=== PATIENT | female | born 1950 | race Two or more races ===

== ENCOUNTER 2020-09-08 11:21 | Inpatient (IN) | payer MEDICARE, OTHER ==
[2020-09-08 12:11] VITALS: BMI 28.1
[2020-09-08 13:26] LABS: BASO % 0.6 % (0-2.0); EOS % 5.2 % (0-4.5); HEMATOCRIT 36.1 % (32.4-45.2); HEMOGLOBIN 11.6 GM/dL (10.7-15.3); LYMPH % 36.5 % (8-40); MCH 25.5 pg (25.7-33.7); MCHC 32.3 g/dl (32.0-36.0); MEAN PLT VOLUME 8.3 fl (7.5-11.1); MONO % 8.7 % (3.8-10.2); PLATELET COUNT 383 K/MM3 (134-434); RBC 4.57 M/mm3 (3.60-5.2); RDW 16.3 % (11.6-15.6); WHITE BLOOD COUNT 5.7 K/mm3 (4.0-10.0)
[2020-09-08 13:51] LABS: CHLORIDE 105 mmol/L (98-107); SODIUM 137 mmol/L (136-145)
[2020-09-08 13:53] LABS: CALCIUM 8.8 mg/dL (8.5-10.1)
[2020-09-08 13:54] LABS: ALBUMIN 3.2 g/dl (3.4-5.0); ANION GAP 3 MMOL/L (8-16); BLOOD UREA NITROGEN 20.4 mg/dL (7-18); CO2 28 mmol/L (21-32); GLUCOSE,RANDOM 88 mg/dL (74-106)
[2020-09-08 13:57] LABS: CREATININE 0.7 mg/dL (0.55-1.3); SGOT/AST 15 U/L (15-37); SGPT/ALT 14 U/L (13-61)
[2020-09-08 13:58] LABS: BILIRUBIN,TOTAL 0.2 mg/dL (0.2-1); TOT PROT 7.8 g/dl (6.4-8.2)
[2020-09-08 13:59] LABS: ALK PHOS 128 U/L (45-117)
[2020-09-08 14:02] LABS: N-TERMINAL BNP 342.5 pg/ml (5-125)
[2020-09-08] MEDS ORDERED: FUROSEMIDE 40 MG/4 ML INJECTABLE VIAL IVPUSH ONE (17:58)
[2020-09-08] MEDS ORDERED: AZITHROMYCIN IVPB 500 MG/250 ML BAG IVPB SCH (18:00)
[2020-09-08] MEDS ORDERED: HYDROCORTISONE SOD SUCCINATE 100 MG/2 ML VIAL ONE (18:05)
[2020-09-08] MEDS ORDERED: FUROSEMIDE 40 MG/4 ML INJECTABLE VIAL ONE ×2 (18:05→18:17)
[2020-09-08] MEDS ORDERED: AZITHROMYCIN IVPB 500 MG/250 ML BAG IVPB ONE (18:06)
[2020-09-08] MEDS: methylPREDNISolone NA SUCC 125 MG/2 ML VIAL IVPUSH SCH (18:13)
[2020-09-08] MEDS ORDERED: methylPREDNISolone NA SUCC 40 MG/1 ML VIAL ONE (18:16)
[2020-09-08] MEDS ORDERED: ALBUTEROL SO4 2.5/IPRATROPIUM 0.5 INH SOL 3 ML VIAL.NEB. NEB PRN (18:47)
[2020-09-08] MEDS ORDERED: ALBUTEROL SO4 HFA INHALER IH PRN (18:47)
[2020-09-08] MEDS ORDERED: INSULIN SLIDING SCALE (NOVOLOG) 1 VIAL SQ ONE (23:09)
[2020-09-08] MEDS: INSULIN SLIDING SCALE (NOVOLOG) 1 VIAL SQ SCH (23:13)
[2020-09-09] MEDS ORDERED: methylPREDNISolone NA SUCC 125 MG/2 ML VIAL ONE (02:41)
[2020-09-09] MEDS: methylPREDNISolone NA SUCC 125 MG/2 ML VIAL IVPUSH SCH (02:48)
[2020-09-09] MEDS: INSULIN SLIDING SCALE (NOVOLOG) 1 VIAL SQ SCH ×2 (07:20→12:50)
[2020-09-09 07:53] LABS: BASO % 0.4 % (0-2.0); HEMATOCRIT 36.5 % (32.4-45.2); HEMOGLOBIN 11.8 GM/dL (10.7-15.3); LYMPH % 12.9 % (8-40); MCH 25.2 pg (25.7-33.7); MCHC 32.3 g/dl (32.0-36.0); MEAN CELL VOLUME 77.9 fl (80-96); MEAN PLT VOLUME 8.5 fl (7.5-11.1); MONO % 1.1 % (3.8-10.2); NEUT % 85.6 % (42.8-82.8); PLATELET COUNT 411 K/MM3 (134-434); RBC 4.68 M/mm3 (3.60-5.2); WHITE BLOOD COUNT 5.8 K/mm3 (4.0-10.0)
[2020-09-09 08:15] LABS: CALCIUM 9.2 mg/dL (8.5-10.1)
[2020-09-09 08:16] LABS: BLOOD UREA NITROGEN 25.7 mg/dL (7-18)
[2020-09-09 08:17] LABS: MAGNESIUM 1.9 mg/dL (1.8-2.4)
[2020-09-09 08:20] LABS: BILIRUBIN,TOTAL 0.3 mg/dL (0.2-1); CREATININE 0.7 mg/dL (0.55-1.3)
[2020-09-09 08:22] LABS: TOT PROT 7.8 g/dl (6.4-8.2)
[2020-09-09] MEDS ORDERED: ENOXAPARIN NA (PORCINE) 40 MG/0.4 ML DISP.SYRIN SQ SCH (10:00)
[2020-09-09] MEDS ORDERED: PANTOPRAZOLE 20 MG TABLET PO SCH (10:00)
[2020-09-09] MEDS ORDERED: LISINOPRIL 20 MG TABLET PO SCH (10:00)
[2020-09-09] MEDS ORDERED: LISINOPRIL 20 MG TABLET ONE (11:00)
[2020-09-09] MEDS ORDERED: PANTOPRAZOLE 20 MG TABLET PO ONE (11:00)
[2020-09-09] MEDS ORDERED: ENOXAPARIN NA (PORCINE) 40 MG/0.4 ML DISP.SYRIN SQ ONE (11:01)
[2020-09-09] MEDS ORDERED: FUROSEMIDE 20 MG TABLET (FP) PO SCH (14:45)
[2020-09-09] MEDS ORDERED: FUROSEMIDE 40 MG TABLET (FP) ONE (16:25)
[2020-09-09 16:36] VITALS: BP 150/72; PULSE 88; TEMP 98.1
== END 2020-09-09 16:37 | disposition home or self-care (01) | DRG 292 ==
LOC: JER 11:21 → JERBED 17:27 → OBSVTOIN 17:27
PROVIDERS: ATTEND Internal Medicine
DX: I11.0 Hypertensive heart disease with heart failure (principal); J44.1 Chronic obstructive pulmonary disease with (acute) exacerbation; I50.33 Acute on chronic diastolic (congestive) heart failure; E11.9 Type 2 diabetes mellitus without complications; F17.210 Nicotine dependence, cigarettes, uncomplicated; K21.9 Gastro-esophageal reflux disease without esophagitis; E78.5 Hyperlipidemia, unspecified; Z79.4 Long term (current) use of insulin
CPT/HCPCS: 36415; 71046-TC-FY; 80053; 80061; 82728; 82962; 83036; 83540; 83550; 83721; 83735; 83880; 84484; 85025; 93005; 93010; 93306-TC; 93970-TC; 99285-25; C9803; U0003